=== PATIENT | male | born 1965 | race Caucasian/White ===

== ENCOUNTER 2018-05-05 19:54 | Emergency (ER) | payer SELFPAY ==
[2018-05-05] MEDS ORDERED: NORMAL SALINE 1000 ML 1,000 ML IV ONE (20:16)
[2018-05-05] MEDS ORDERED: ONDANSETRON HCL INJ/PF 4 MG/2 ML SDV IV ONE (20:16)
--- NOTE | 2018-05-05 20:18 | ER Document Report ---
ED General - General Chief Complaint: Abdominal Pain Stated Complaint: ABDOMNIAL PAIN Time Seen by Provider: 05/05/18 20:02 Notes: Patient is a 52-year-old male that comes by EMS for chief complaint of alcohol intoxication, vomiting, and abdominal pain. Patient states that he has vomited about 4 times today, he states he hurts in his mid and left abdomen, he states that he has had intermittent blood in his stools but denies black stools. He denies fever, chest pain, shortness breath, dizziness, passing out. He states that he has chronic pancreatitis, takes pain medication for this, does not like that the pain medication makes him feel weird, but then when the pain gets bad he starts drinking. Patient appears very intoxicated at this time and it is difficult to get specific history details from him. - Related Data Allergies/Adverse Reactions: No Known Drug Allergies Allergy (Verified 05/06/18 00:52) Past Medical History - General Information source: Patient - Social History Smoking Status: Former Smoker Frequency of alcohol use: Heavy Drug Abuse: None Lives with: Spouse/Significant other Family History: Reviewed & Not Pertinent GI Medical History: Reports: Hx Gastritis, Hx Pancreatitis - Immunizations Hx Diphtheria, Pertussis, Tetanus Vaccination: Yes Review of Systems - Review of Systems Constitutional: No symptoms reported EENT: No symptoms reported Cardiovascular: No symptoms reported Respiratory: No symptoms reported Gastrointestinal: See HPI Genitourinary: No symptoms reported Male Genitourinary: No symptoms reported Musculoskeletal: No symptoms reported Skin: No symptoms reported Hematologic/Lymphatic: No symptoms reported Neurological/Psychological: See HPI Physical Exam - Vital signs Vitals: Temp Resp BP Pulse Ox 98.6 F 19 153/112 H 95 05/05/18 20:02 05/05/18 20:02 05/05/18 20:02 05/05/18 20:02 - Notes Notes: GENERAL: Intoxicated, intermittently becomes very loud and somewhat agitated, however he is cooperative and does follow directions HEAD: Normocephalic, atraumatic. EYES: Pupils equal, round, and reactive to light. Extraocular movements intact. ENT: Oral mucosa moist, tongue midline. Minimal erythema of the posterior pharynx, patent airway NECK: Full range of motion. Supple. Trachea midline. LUNGS: Mildly decreased breath sounds bilaterally, no wheezes, rales, rhonchi, tachypnea, or signs of distress HEART: Sinus tachycardia, no murmur ABDOMEN: Soft, non-tender. Non-distended. Bowel sounds present in all 4 quadrants. RECTAL: Brown normal-appearing stool, no gross blood, no tenderness or other abnormality noted. Radha MARIE present during exam. EXTREMITIES: Moves all 4 extremities spontaneously. No edema, normal radial and dorsalis pedis pulses bilaterally. No cyanosis. BACK: no cervical, thoracic, lumbar midline tenderness. No saddle anesthesia, normal distal neurovascular exam. NEUROLOGICAL: Oriented to person, time, and place. Slurred speech. [cranial nerves II through XII grossly intact]. PSYCH: Intermittently anxious and agitated SKIN: Julius skin, slightly flushed Course - Re-evaluation Re-evalutation: Patient insists that he has never had alcohol withdrawals in the past. He states that he does not usually get drunk but got depressed and started drinking the past few days. 05/05/18 23:40 Heart rate down from 120s to now 102, patient became calm and then fell asleep. Abdominal exam without rigidity or guarding, only mild upper abdominal tenderness, lipase is not elevated, CMP shows unremarkable bilirubin, unremarkable LFTs. No leukocytosis. No fever. Patient has not vomited since he has been here. No gross blood in stool on examination, Hemoccult is negative. Patient is very intoxicated with alcohol level 265. Urine drug screen shows barbiturates. Patient has not had any vomiting. Reevaluation of his abdomen is unremarkable. His only complaint on reevaluation is saying that he is going to kill himself. came to bedside. She states that she and her are recently homeless , patient has been drinking more this week compared to prior, she states that he also has been not only depressed but repeating that he is going to kill himself. She denies any voiced plan. He has never tried to kill himself in the past. Patient has unprompted begun saying that if he goes home he is " never going to be seen again". He states that he is going to kill himself. He will not tell me any specific complaint. He denies homicidal ideations. He states he is depressed and his only choice is drinking. Because of patient's voiced concerns, 's first concerns, discussed with patient and and decision was made for patient to be placed on 24 hour papers and be evaluated by the mental health team in the morning. Patient is medically cleared at this time. - Vital Signs Vital signs: Temp Pulse Resp BP Pulse Ox 98.9 F 15 142/90 H 97 05/06/18 03:01 05/06/18 03:01 05/06/18 03:01 05/06/18 03:01 - Laboratory Result Diagrams: 05/05/18 20:06 05/05/18 20:06 Laboratory results interpreted by me: 05/05/18 05/05/18 20:06 20:06 MCV 101 H MCH 34.7 H RDW 14.4 H Sodium 146.3 H Chloride 110 H Carbon Dioxide 21 L Glucose 123 H Calcium 10.3 H Discharge - Discharge Clinical Impression: Suicidal ideations Alcohol intoxication Qualifiers: Complication of substance-induced condition: with unspecified complication Qualified Code(s): F10.929 - Alcohol use, unspecified with intoxication, unspecified Condition: Stable Disposition: PSYCH HOSP/UNIT
[2018-05-05 20:33] LABS: ABSOLUTE BASOPHILS # (AUTO) 0.1 10^3/uL (0.0-0.2); ABSOLUTE EOSINOPHILS # (AUTO) 0.2 10^3/uL (0.0-0.6); ABSOLUTE LYMPHOCYTES (AUTO) 3.7 10^3/uL (0.5-4.7); ABSOLUTE MONOCYTES (AUTO) 0.7 10^3/uL (0.1-1.4); ABSOLUTE NEUT (AUTO) 4.8 10^3/uL (1.7-8.2); BASOPHILS % (AUTO) 0.8 % (0-2); EOSINOPHILS % (AUTO) 1.6 % (0-6); HEMATOCRIT 47.4 % (37.9-51.0); HEMOGLOBIN 16.3 g/dL (13.5-17.0); LYMPHOCYTES % (AUTO) 38.8 % (13-45); MEAN CORPUSCULAR HEMOGLOBIN 34.7 pg (27.0-33.4); MEAN CORPUSCULAR HGB CONC 34.4 g/dL (32.0-36.0); MEAN CORPUSCULAR VOLUME 101 fl (80-97); MONOCYTES % (AUTO) 7.7 % (3-13); PLATELET COUNT 337 10^3/uL (150-450); RED CELL DISTRIBUTION WIDTH 14.4 % (11.5-14.0); SEGMENTED NEUTROPHILS % (AUTO) 51.1 % (42-78); TOTAL CELLS COUNTED % (AUTO) 100 %; WHITE BLOOD COUNT 9.5 10^3/uL (4.0-10.5)
[2018-05-05 20:57] LABS: ALANINE AMINOTRANSFERASE 28 U/L (21-72); ALBUMIN 4.2 g/dL (3.5-5.0); ALCOHOL 265 mg/dL (NONE DETECTED); ALKALINE PHOSPHATASE 97 U/L (38-126); ANION GAP 15 (5-19); ASPARTATE AMINO TRANSFERASE 25 U/L (17-59); BILIRUBIN,DIRECT 0.2 mg/dL (0.0-0.4); BILIRUBIN,TOTAL 0.2 mg/dL (0.2-1.3); BLOOD UREA NITROGEN 10 mg/dL (7-20); CALCIUM 10.3 mg/dL (8.4-10.2); CARBON DIOXIDE 21 mmol/L (22-30); CHLORIDE 110 mmol/L (98-107); GLUCOSE 123 mg/dL (75-110); POTASSIUM 4.6 mmol/L (3.6-5.0); SODIUM 146.3 mmol/L (137-145); TOTAL PROTEIN 7.5 g/dL (6.3-8.2)
[2018-05-05 21:08] LABS: APPEARANCE,URINE CLEAR; BILIRUBIN,URINE NEGATIVE (NEGATIVE); COLOR,URINE STRAW; GLUCOSE, URINE NEGATIVE (NEGATIVE); KETONES,URINE NEGATIVE (NEGATIVE); LEUKOCYTE ESTERASE,URINE NEGATIVE (NEGATIVE); NITRITE,URINE NEGATIVE (NEGATIVE); PROTEIN,URINE NEGATIVE (NEGATIVE); URINE SPECIFIC GRAVITY 1.006; UROBILINOGEN,URINE NEGATIVE mg/dL (<2.0)
[2018-05-05] MEDS ORDERED: PROMETHAZINE HCL INJ 25 MG/1 ML VIAL IM ONE (21:13)
--- NOTE | 2018-05-05 21:13 | EKG REPORT ---
SEVERITY:- BORDERLINE ECG - SINUS TACHYCARDIA PROBABLE LEFT ATRIAL ABNORMALITY POOR R WAVE PROGRESSION ANTERIOR PRECORDIAL LEADS : Confirmed by: Ramon Hernandez MD 05-May-2018 21:12:24
[2018-05-05 21:23] LABS: URINE AMPHETAMINES SCREEN NEGATIVE; URINE BARBITURATES SCREEN UNCONFIRMED POSITIVE; URINE BENZODIAZEPINES SCREEN NEGATIVE; URINE COCAINE SCREEN NEGATIVE; URINE MARIJUANA (THC) SCREEN NEGATIVE; URINE METHADONE SCREEN NEGATIVE; URINE PHENCYCLIDINE SCREEN NEGATIVE
[2018-05-06] MEDS ORDERED: PROMETHAZINE HCL INJ 25 MG/1 ML VIAL IM ONE (05:40)
[2018-05-06] MEDS ORDERED: HYDROXYZINE HCL 10 MG TABLET PO ONE (10:36)
--- NOTE | 2018-05-06 10:38 | PSYCHOLOGICAL NOTE ---
Psych Note - Psych Note Psych Note: This 52-year-old man presented for desire to detox last night. Last drink was yesterday. This man does not have any complicated history of withdrawal in the past.
--- NOTE | 2018-05-06 12:35 | PSYCHOLOGICAL NOTE ---
Psych Note - Psych Note Psych Note: Reason for Consult: Suicidal Ideation, substance abuse;alcohol Consent Permissions: Patient insists that he has never had alcohol withdrawals in the past. He states that he does not usually get drunk but got depressed and started drinking the past few days. His only complaint on reevaluation is saying that he is going to kill himself. Patient disclosed that he came to [facility] ED because he is "got a stop drinking." He states that he has lost everything to include his home, job, and driver material handler's license. He states that if he does not change he will end up drinking himself to . Patient states that he does have some issues with following through with getting help; "2 weeks ago I was at [facility] and was all set up to go inpatient when I backed out." Patient states that last year he was successful in staying sober for about 6-8 months. He states that this was accomplished by going through a program in [place] and then following up with living through the [facility]. Behavioral health team contacted [facility], [facility], and [facility]; there are no beds available. Clinician checking with patient. He discloses much better mood stating he received a phone call from his girlfriend who stated that 1 of the applications he submitted has come back and he has been hired. He reports that he no longer feels so despondent and feels like he is a reason to live again. Patient disclosed that when he is working as much better because he is not sitting around doing nothing and worrying. He discloses his plan will be to follow-up with AA and look into some other outpatient substance abuse treatment programs. Patient is alert and orientated to person, place, time and circumstance. Mood is euthymic with congruent affect as evidenced by smiling and engaging with clinician. Patient denies suicidal ideation after receiving positive word on getting a job. Patient denies homicidal ideation. Delusions are absent behaviors congruent with an intact reality based presentation i.e. organized and linear thought process. Eye contact is well-maintained. Conversational speech was within normal rate, tone and prosody. Intellectual abilities appear to be within the average range. Attention and concentration are good. Insight , judgment, impulse control are fair. 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 Patient reports wanting assistance with detox. He disclosed that he feels he really needs a one year program to get clean. It was explained to the patient there are no current beds available but that he will be put into contact with [facility] for continued assistance. Patient was provided information on different residential options. Patient discloses passive suicidal ideation i.e. no plans means or intent in connection with his depression on trying to become sober. Patient does not meet IVC criteria per [place] 122C. Upon discussing discharge plan patient disclosed he received a phone call from his girlfriend who disclosed that one of his applications for employment was accepted and he has a job offer. Patient disclosed that he will be following up with AA meetings for the evening and possible additional substance abuse treatment so he does not jeopardize this job offer. Dr. Winters was consulted and the care management this patient; attending physician is in agreement with recommendations and disposition. Discharge - Discharge Clinical Impression: Suicidal ideations Alcohol intoxication Qualifiers: Complication of substance-induced condition: with unspecified complication Qualified Code(s): F10.929 - Alcohol use, unspecified with intoxication, unspecified Condition: Stable Disposition: HOME, SELF-CARE Additional Instructions: You have been evaluated by medical and behavioral health teams and have been deemed appropriate for discharge. You are recommended to follow up with [facility] for continued assistance in obtaining detox. You have also been provided information on care home residential substance abuse treatment. ACUTE ALCOHOL INTOXICATION and ALCOHOL ABUSE: Your evaluation revealed very high levels of alcohol. You can from drinking a large amount of alcohol rapidly! Further, there's the risk of falls , traffic accidents, and fights. A high portion (about 50 percent) of the serious injuries seen in hospital emergency rooms are caused by alcohol. Alcohol overdosage is usually due to an underlying emotional or psychiatric problem. You may benefit from counselling. If "binge" drinking is an ongoing problem for you, or if you drink ANY AMOUNT of alcohol EVERY day, you most likely have a tendency to alcoholism. You should avoid alcohol totally. We can refer you for treatment. Persons with alcohol problems are often also prone to other addictions -- you should discuss any use of medications or drugs with the doctor. You should be watched at home for the next several hours by someone who has not been drinking. Get extra fluids for the next 24 hours. Call the doctor if there is repeated vomiting, increasing headache, decreasing level of alertness, or any other worsening. CHRONIC ALCOHOLISM and ALCOHOL ABUSE: Your evaluation reveals evidence of chronic alcoholism, an addiction to alcohol. The tendency to alcoholism may be inherited. Chronic use of alcohol weakens muscles, causes fatty deposits in the liver , damages the stomach, makes you more prone to infections, and can cause defects in unborn children. In the long run, brain atrophy and cirrhosis of the liver result. You are also at greater risk for certain types of cancer, such as cancer of the mouth, throat, stomach, and liver. Counselling services are available to help you. In-hospital treatment programs often help. Support groups such as Alcoholics Anonymous can be very useful in beating this addiction. Your physician can make a referral for you. As alcoholics often are prone to other addictions, you should discuss your use of any other medications with the doctor. DEPRESSION: Your evaluation reveals that you have mental depression. While symptoms may be vague, they often include disturbance of sleep, fatigue, loss of appetite , and general loss of interest in life. While depression may be a side effect of drugs, or a reaction to a major change in your life, many cases have no known cause. If depression is acute, and related to a major loss in your life, you can expect it to clear completely with time. If you have been depressed a long time , are prone to repeated bouts of depression or low mood, or have been thinking of suicide, get help. Depression can be treated with anti-depressant medication and counselling. Long-term depression will often take a few weeks to clear, even with appropriate medication. Follow-up care is important. SUICIDAL IDEATION: Suicidal ideation is a common medical term for thoughts about suicide, which may be as detailed as a formulated plan, without the suicidal act itself. Although most people who undergo suicidal ideation do not commit suicide, some go on to make suicide attempts. The range of suicidal ideation varies greatly from fleeting to detailed planning, role playing, and unsuccessful attempts. While thoughts about suicide are common, most people do not carry out serious actions to commit suicide. Based upon your evaluation and discussion with you, we do not believe you are currently at risk to act upon your thoughts of suicide. You have agreed to return to the Emergency Department, at any time , if you feel inclined to act upon your suicidal thoughts. FOLLOW-UP CARE: If you experience worsening or a significant change in your symptoms, notify the physician immediately or return to the Emergency Department at any time for re-evaluation. Referrals: [facility] [Outside] - Follow up in 3-5 days [facility] [Outside] - 05/06/18
--- NOTE | 2018-05-06 15:30 | ER Document Report ---
Doctor's Note Notes: 05/06/18 15:30 Alcoholic seeking treatment he presented with abdominal pain notes that he has been drinking extensively over the last several weeks. He denies any desire to harm himself at this time or anyone else. He denies any hallucinations. Notes that he actually received a call for a job offer today and is feeling very upbeat. After speaking with mental health team this patient has been deemed safe for discharge, he will pursue outpatient treatment for his alcoholism. He has never a complicated withdrawal do not believe he is at risk for complicated withdrawal at this time. Encouraged him to follow-up in case of any worsening symptoms. 05/06/18 20:32
[2018-05-06 16:22] VITALS: BP 157/113
== END 2018-05-06 16:22 | disposition home or self-care (01) ==
LOC: ER 19:54
DX: R45.851 Suicidal ideations (principal); F10.929 Alcohol use, unspecified with intoxication, unspecified; R11.10 Vomiting, unspecified; R10.9 Unspecified abdominal pain
CPT/HCPCS: 93005; 99285; 96372; 96361; 96374; 36415; 80307 ×2; 83690; 85025; 82272; 80053; 81001; 93010; J2550 ×2; J2405; J7030

== ENCOUNTER 2019-02-07 14:04 | Emergency (ER) | payer OTHER ==
[2019-02-07] MEDS ORDERED: KETOROLAC TROMETHAMINE INJ/PF 30 MG/1 ML SDV IM ONE (15:20)
[2019-02-07] MEDS ORDERED: DIPH/PERTUSS(ACELL)/TETANUS VAC/PF 0.5 ML SYR (>=10YO) IM ONE (15:20)
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
[2019-02-07 15:53] LABS: ABSOLUTE BASOPHILS # (AUTO) 0.1 10^3/uL (0.0-0.2); ABSOLUTE EOSINOPHILS # (AUTO) 0.1 10^3/uL (0.0-0.6); ABSOLUTE NEUT (AUTO) 6.4 10^3/uL (1.7-8.2); EOSINOPHILS % (AUTO) 1.2 % (0-6); HEMATOCRIT 45.6 % (37.9-51.0); HEMOGLOBIN 15.4 g/dL (13.5-17.0); LYMPHOCYTES % (AUTO) 28.3 % (13-45); MEAN CORPUSCULAR HEMOGLOBIN 34.3 pg (27.0-33.4); MEAN CORPUSCULAR HGB CONC 33.8 g/dL (32.0-36.0); MEAN CORPUSCULAR VOLUME 102 fl (80-97); MONOCYTES % (AUTO) 9.1 % (3-13); PLATELET COUNT 309 10^3/uL (150-450); RED BLOOD COUNT 4.49 10^6/uL (4.35-5.55); RED CELL DISTRIBUTION WIDTH 14.9 % (11.5-14.0); SEGMENTED NEUTROPHILS % (AUTO) 60.4 % (42-78); TOTAL CELLS COUNTED % (AUTO) 100 %; WHITE BLOOD COUNT 10.7 10^3/uL (4.0-10.5)
[2019-02-07 16:11] LABS: ALANINE AMINOTRANSFERASE 22 U/L (21-72); ALBUMIN 3.8 g/dL (3.5-5.0); ALKALINE PHOSPHATASE 109 U/L (38-126); ANION GAP 10 (5-19); ASPARTATE AMINO TRANSFERASE 17 U/L (17-59); BILIRUBIN,DIRECT 0.2 mg/dL (0.0-0.4); BILIRUBIN,TOTAL 0.2 mg/dL (0.2-1.3); BLOOD UREA NITROGEN 12 mg/dL (7-20); CALCIUM 9.4 mg/dL (8.4-10.2); CARBON DIOXIDE 23 mmol/L (22-30); CHLORIDE 110 mmol/L (98-107); GLUCOSE 103 mg/dL (75-110); POTASSIUM 3.8 mmol/L (3.6-5.0); SODIUM 143.2 mmol/L (137-145)
[2019-02-07] MEDS ORDERED: OXYCODONE-ACETAMINOPHEN 5-325 MG TABLET PO ONE (17:31)
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
--- NOTE | 2019-02-07 18:59 | ER Document Report ---
ED Hand/Wrist Injury - General Chief Complaint: Hand Injury Stated Complaint: HAND INJURY Time Seen by Provider: 02/07/19 15:17 Primary Care Provider: RAKESH CHRISTIANSON MD [Primary Care Provider] - Follow up as needed Mode of Arrival: Ambulatory Information source: Patient, Relative Notes: Patient is a 53-year-old male who was sent to the emergency room by Dr. Flower dumont with a complaint of a chemical burn to the right hand. 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 Patient states he did not think anything about it happened before but may be not for that long. And went home and a little bit of discomfort and went to bed woke up at 4:00 this morning had a little blisters on the palm of his right hand and on multiple fingers. Also during that time the dorsum of his hand started to swell and the blisters became bigger and bigger. He went to see his primary care doctor who sent him to the ER because he needs to be seen by a hand specialist. Patient also states that in a separate incident he burned the base of the right elbow area on a muffler yesterday while also working. TRAVEL OUTSIDE OF THE [place] IN LAST 30 DAYS: No - HPI Injury to: Hand, Palm, Thumb, Index finger, Middle finger, Ring finger, Small finger Onset: Yesterday Where: Work Timing: Constant, Worse Quality of pain: Burning, Sharp, Throbbing Severity: Moderate Pain Level: 3 Context: Burn - Related Data Allergies/Adverse Reactions: No Known Drug Allergies Allergy (Verified 02/07/19 14:05) Past Medical History - General Information source: Patient, Relative - Social History Smoking Status: Current Every Day Smoker Cigarette use (# per day): Yes - Half-pack Chew tobacco use (# tins/day): No Smoking Education Provided: No Frequency of alcohol use: None Drug Abuse: None Lives with: Family Family History: Reviewed & Not Pertinent Patient has suicidal ideation: No Patient has homicidal ideation: No - Past Medical History Cardiac Medical History: Reports: Hx Hypertension Renal/ Medical History: Denies: Hx Peritoneal Dialysis GI Medical History: Reports: Hx Gastritis, Hx Pancreatitis Past Surgical History: Reports: Hx Pancreatic Surgery - tumor removed - Immunizations Hx Diphtheria, Pertussis, Tetanus Vaccination: Yes Review of Systems - Review of Systems Constitutional: No symptoms reported EENT: No symptoms reported Cardiovascular: No symptoms reported Respiratory: No symptoms reported Gastrointestinal: No symptoms reported Genitourinary: No symptoms reported Male Genitourinary: No symptoms reported Musculoskeletal: No symptoms reported Skin: See HPI, Other - Chemical burn to hand Hematologic/Lymphatic: No symptoms reported Neurological/Psychological: No symptoms reported -: Yes All other systems reviewed and negative Physical Exam - Vital signs Vitals: Temp Pulse Resp BP Pulse Ox 98.1 F 81 16 131/89 H 98 02/07/19 14:12 02/07/19 14:12 02/07/19 14:12 02/07/19 14:12 02/07/19 14:12 Interpretation: Hypertensive - Notes Notes: PHYSICAL EXAMINATION: GENERAL: Well-appearing, well-nourished and in no acute distress. HEAD: Atraumatic, normocephalic. EYES: Pupils equal round and reactive to light, extraocular movements intact, sclera anicteric, conjunctiva are normal. LUNGS: Breath sounds clear to auscultation bilaterally and equal. No wheezes rales or rhonchi. HEART: Regular rate and rhythm without murmurs Musculoskeletal: Examination patient's area of concern is his right hand. Examination of the hand shows that he has 2 blisters one in the thenar prominence of the right hand and the other at approximately the ring finger palmar side of the palm. One is 4 x 4 cm the other one is 2 x 2 cm. Further examination shows there are other blisters scattered throughout all the fingers on the palmar side only. Also noted are multiple discolorations of a whitish nature of that appeared more deep down into the skin tone itself. Almost like a freeze burn to the area. Patient has swelling of all the fingers at this point with good cap refill in nailbeds of all fingers on examination. He has some swelling to the dorsum of the right hand but no restrictive blood flow concerns at this time. There is no sign of compartment syndrome in any of the fingers. Patient actually has flexion and extension although limited by swelling and discomfort. He displays as stated good cap refill in the nailbeds of the fingers at this time. He also displays sensation in the distal tips of the fingers. Sensation also distributes across the dorsum of the hand as well as the palmar side of the hand. NEUROLOGICAL: Normal speech, normal gait. Normal sensory, motor exams PSYCH: Normal mood, normal affect. SKIN: see musculoskeletal above. As described in muscular skeletal above there is multiple discolorations that are concerning for a freeze burn i.e. frostbite type presentation to each of the fingers of the right hand. As stated patient has a second area of a secondary burn. Is approximately 2 cm wide by 6 cm long. It is a early second-degree type burn. It has has some reddened base to the area that extends out approximately 6 cm. Does appear to be a secondary cellulitis. Course - Re-evaluation Re-evalutation: 02/07/19 18:[address] Moran after examination of patient's and explained to him about the discolorations and the frostbite presentation as well as the blisters. He has requested to have the patient be seen in his office tomorrow and we will give the patient the information to contact the office in the morning to see what time he needs to be seen. Meantime Dr. Moran had me put a nonocclusive dressing on it. I have also had and Dr. Cara Dior take a look at it as well she is in agreement with me on treatment options at this time we will apply some antibiotic ointment and nonstick dressing and a light external wrap. Patient does admit that he has been in pain management for chronic pancreatitis and states that he stopped pain management control a month ago. We will give patient enough medication to last until he can see Dr. Moran tomorrow. 02/07/19 19:01 As stated earlier patient does have a small second area of concern which is the palmar side of the right elbow he has a approximately 6 cm x 2-1/2 cm area of a muffler burn that we applied antibiotic ointment to and a dressing as well. There is some redness surrounding that area so we will also apply some oral antibiotics for cellulitis. - Vital Signs Vital signs: Temp Pulse Resp BP Pulse Ox 98.1 F 81 16 131/89 H 98 02/07/19 14:12 02/07/19 14:12 02/07/19 14:12 02/07/19 14:12 02/07/19 14:12 - Laboratory Result Diagrams: 02/07/19 15:40 02/07/19 15:40 Laboratory results interpreted by me: 02/07/19 02/07/19 15:40 15:40 WBC 10.7 H MCV 102 H MCH 34.3 H RDW 14.9 H Chloride 110 H Discharge - Discharge Clinical Impression: Freeze burn right hand Chemical burn of right hand Qualifiers: Encounter type: initial encounter Corrosion degree: unspecified degree Qualified Code(s): T23.401A - Corrosion of unspecified degree of right hand, unspecified site, initial encounter Condition: Stable Disposition: HOME, SELF-CARE Additional Instructions: Home and leave the area wrapped until he seen by Dr. Moran tomorrow. I have given the information to his office contact our office first thing in the morning at 8 AM and find out what time you are to be there. Oral antibiotics as prescribed you can change your dressing out on your elbow area 2-3 times a day. Also apply antibiotic ointment over that area. As stated though do not take off the hand wrapping until seen by Dr. Moran. Prescriptions: Cephalexin Monohydrate [Keflex 500 mg Capsule] 500 mg PO QID #28 capsule Oxycodone HCl/Acetaminophen [Percocet 5-325 mg Tablet] 1 - 2 tab PO Q4H PRN #10 tablet PRN Reason: Forms: Elevated Blood Pressure, Smoking Cessation Education Referrals: RAKESH CRHISTIANSON MD [Primary Care Provider] - Follow up as needed MAISHA MORAN MD [ACTIVE STAFF] - Follow up as needed
[2019-02-07 19:01] VITALS: BP 129/94
== END 2019-02-07 19:11 | disposition home or self-care (01) ==
LOC: ER 14:04
DX: T23.251A Burn of second degree of right palm, initial encounter (principal); T22.211A Burn of second degree of right forearm, initial encounter; T53.5X1A Toxic effect of chlorofluorocarbons, accidental (unintentional), initial encounter; I10 Essential (primary) hypertension; X58.XXXA Exposure to other specified factors, initial encounter; Y99.0 Civilian activity done for income or pay; F17.210 Nicotine dependence, cigarettes, uncomplicated
CPT/HCPCS: 99283; 96372; 90471; 36415; 85025; 80053; 73130; 90715; J1885

== ENCOUNTER 2019-02-25 20:06 | Emergency (ER) | payer SELFPAY ==
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
[2019-02-25 20:37] LABS: ABSOLUTE BASOPHILS # (AUTO) 0.1 10^3/uL (0.0-0.2); ABSOLUTE EOSINOPHILS # (AUTO) 0.1 10^3/uL (0.0-0.6); ABSOLUTE LYMPHOCYTES (AUTO) 2.9 10^3/uL (0.5-4.7); ABSOLUTE MONOCYTES (AUTO) 0.8 10^3/uL (0.1-1.4); BASOPHILS % (AUTO) 0.5 % (0-2); EOSINOPHILS % (AUTO) 0.4 % (0-6); LYMPHOCYTES % (AUTO) 24.3 % (13-45); MEAN CORPUSCULAR HEMOGLOBIN 34.3 pg (27.0-33.4); MEAN CORPUSCULAR VOLUME 101 fl (80-97); MONOCYTES % (AUTO) 7.1 % (3-13); PLATELET COUNT 244 10^3/uL (150-450); RED BLOOD COUNT 4.36 10^6/uL (4.35-5.55); RED CELL DISTRIBUTION WIDTH 14.2 % (11.5-14.0); SEGMENTED NEUTROPHILS % (AUTO) 67.7 % (42-78); TOTAL CELLS COUNTED % (AUTO) 100 %; WHITE BLOOD COUNT 11.7 10^3/uL (4.0-10.5)
[2019-02-25 20:50] LABS: ALANINE AMINOTRANSFERASE 21 U/L (21-72); ALBUMIN 3.8 g/dL (3.5-5.0); ALCOHOL 256 mg/dL (NONE DETECTED); ALKALINE PHOSPHATASE 82 U/L (38-126); ANION GAP 11 (5-19); ASPARTATE AMINO TRANSFERASE 21 U/L (17-59); BILIRUBIN,DIRECT 0.2 mg/dL (0.0-0.4); BILIRUBIN,TOTAL 0.2 mg/dL (0.2-1.3); BLOOD UREA NITROGEN 9 mg/dL (7-20); CALCIUM 9.4 mg/dL (8.4-10.2); CARBON DIOXIDE 20 mmol/L (22-30); CHLORIDE 117 mmol/L (98-107); GLUCOSE 88 mg/dL (75-110); POTASSIUM 3.2 mmol/L (3.6-5.0); SALICYLATE 8.8 mg/dL (2.0-20.0); SODIUM 147.6 mmol/L (137-145); TOTAL PROTEIN 6.5 g/dL (6.3-8.2)
[2019-02-25 20:52] LABS: ACETAMINOPHEN < 10 ug/mL (10-30)
--- NOTE | 2019-02-25 21:53 | EKG REPORT ---
SEVERITY:- NORMAL ECG - SINUS RHYTHM : Confirmed by: Ramon Hernandez MD 25-Feb-2019 21:52:33
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
--- NOTE | 2019-02-25 22:13 | RADIOLOGY REPORT (SQ) ---
EXAM DESCRIPTION: XR CHEST 1 VIEW COMPLETED DATE/TME: 02/25/2019 20:25 CLINICAL HISTORY: 53 years, Male, trauma, attempted hanging Comparison: None FINDINGS: No focal lung consolidation. No pleural effusion. No pneumothorax. Cardiac and mediastinal silhouette is unremarkable. No acute osseous abnormality. Soft tissues are unremarkable. IMPRESSION: No acute findings. No focal lung consolidation.
--- NOTE | 2019-02-25 22:20 | RADIOLOGY REPORT (SQ) ---
EXAM DESCRIPTION: XR HAND 3 VIEWS BILATERAL COMPLETED DATE/TME: 02/25/2019 20:25 CLINICAL HISTORY: 53 years, Male, trauma, attempted hanging COMPARISON: RIGHT hand radiographs dated 02/07/2019. NUMBER OF VIEWS: Three separate views of each hand TECHNIQUE: Three views of the RIGHT hand and three separate views of LEFT hand were performed. LIMITATIONS: Some wires overlie the RIGHT second digit. FINDINGS: No localized soft tissue swelling or radiopaque foreign body is identified. Incidental note is made of a small ossification distal to the RIGHT ulnar styloid process, unchanged. Similarly, there are small chronic ossifications posterior to the LEFT wrist and hand only visualized on the lateral radiograph. Bone mineralization is within normal limits. No fracture is identified. Bony alignment is maintained. No suspicious calcification is seen. IMPRESSION: Unremarkable bilateral hand radiographs aside from chronic/normal variant findings. copyright 2010 [employer]- All Rights Reserved
[2019-02-25] MEDS ORDERED: RINGERS SOLUTION,LACTATED 1,000 ML IV ONE (23:23)
[2019-02-26 02:52] LABS: APPEARANCE,URINE CLEAR; BILIRUBIN,URINE NEGATIVE (NEGATIVE); COLOR,URINE YELLOW; GLUCOSE, URINE NEGATIVE (NEGATIVE); KETONES,URINE NEGATIVE (NEGATIVE); LEUKOCYTE ESTERASE,URINE NEGATIVE (NEGATIVE); NITRITE,URINE NEGATIVE (NEGATIVE); PROTEIN,URINE NEGATIVE (NEGATIVE); UROBILINOGEN,URINE NEGATIVE mg/dL (<2.0)
[2019-02-26 02:54] LABS: URINE SPECIFIC GRAVITY > 1.060
[2019-02-26 03:25] LABS: URINE AMPHETAMINES SCREEN NEGATIVE; URINE BARBITURATES SCREEN NEGATIVE; URINE BENZODIAZEPINES SCREEN NEGATIVE; URINE COCAINE SCREEN NEGATIVE; URINE MARIJUANA (THC) SCREEN NEGATIVE; URINE METHADONE SCREEN NEGATIVE; URINE PHENCYCLIDINE SCREEN NEGATIVE
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
[2019-02-26] MEDS: VENLAFAXINE HCL 37.5 MG CAP.SR.24H PO SCH (09:44)
[2019-02-26] MEDS: BUSPIRONE HCL 10 MG TABLET PO SCH ×2 (09:45→18:36)
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
[2019-02-26] MEDS ORDERED: AMLODIPINE BESYLATE 5 MG TABLET PO ONE (18:13)
[2019-02-26] MEDS ORDERED: ATENOLOL 50 MG TABLET PO ONE (18:13)
[2019-02-26] MEDS ORDERED: NICOTINE 21 MG/24 HR PATCH.TD24 TD ONE (18:56)
[2019-02-27] MEDS ORDERED: POTASSIUM CHLORIDE 10 MEQ CAPSULE.ER PO ONE (09:42)
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
[2019-02-27] MEDS: AMLODIPINE BESYLATE 5 MG TABLET PO SCH (10:37)
[2019-02-27] MEDS: BUSPIRONE HCL 10 MG TABLET PO SCH ×2 (10:37→17:24)
[2019-02-27] MEDS: VENLAFAXINE HCL 37.5 MG CAP.SR.24H PO SCH (10:38)
[2019-02-27] MEDS: ATENOLOL 50 MG TABLET PO SCH (10:38)
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
[2019-02-27] MEDS ORDERED: LORAZEPAM 1 MG TABLET PO ONE (15:37)
[2019-02-27] MEDS ORDERED: DIPHENOXYLATE HCL/ATROP SULF 2.5-0.025 MG TABLET PO ONE (17:36)
[2019-02-27] MEDS ORDERED: TRAMADOL HCL 50 MG TABLET PO ONE (19:31)
[2019-02-28 06:20] VITALS: BP 145/93
[2019-02-28] MEDS: BUSPIRONE HCL 10 MG TABLET PO SCH (09:08)
[2019-02-28] MEDS: ATENOLOL 50 MG TABLET PO SCH (09:08)
[2019-02-28] MEDS: VENLAFAXINE HCL 37.5 MG CAP.SR.24H PO SCH (09:08)
[2019-02-28] MEDS: AMLODIPINE BESYLATE 5 MG TABLET PO SCH (09:09)
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
== END 2019-02-28 14:51 | disposition home or self-care (01) ==
LOC: ER 20:06
DX: S09.90XA Unspecified injury of head, initial encounter (principal); F10.920 Alcohol use, unspecified with intoxication, uncomplicated; R41.0 Disorientation, unspecified; Y04.0XXA Assault by unarmed brawl or fight, initial encounter; T71.162A Asphyxiation due to hanging, intentional self-harm, initial encounter; X83.8XXA Intentional self-harm by other specified means, initial encounter; I10 Essential (primary) hypertension; Z78.1 Physical restraint status; F32.9 Major depressive disorder, single episode, unspecified
CPT/HCPCS: 93005; 99285; 36415; 80307 ×4; 85025; 80053; 81001; 71045; 73130; 70450; 70498; 72125; 93010; J3490 ×4; J7120

== ENCOUNTER 2019-06-27 00:49 | Emergency (ER) | payer SELFPAY ==
[2019-06-27 01:15] LABS: ABSOLUTE BASOPHILS # (AUTO) 0.1 10^3/uL (0.0-0.2); ABSOLUTE MONOCYTES (AUTO) 0.7 10^3/uL (0.1-1.4); ABSOLUTE NEUT (AUTO) 7.8 10^3/uL (1.7-8.2); BASOPHILS % (AUTO) 0.6 % (0-2); EOSINOPHILS % (AUTO) 0.3 % (0-6); MEAN CORPUSCULAR VOLUME 97 fl (80-97); MONOCYTES % (AUTO) 6.5 % (3-13); PLATELET COUNT 296 10^3/uL (150-450); RED BLOOD COUNT 4.83 10^6/uL (4.35-5.55); RED CELL DISTRIBUTION WIDTH 13.1 % (11.5-14.0); SEGMENTED NEUTROPHILS % (AUTO) 73.6 % (42-78); TOTAL CELLS COUNTED % (AUTO) 100 %; WHITE BLOOD COUNT 10.7 10^3/uL (4.0-10.5)
[2019-06-27 01:21] LABS: ALBUMIN 4.4 g/dL (3.5-5.0); ALKALINE PHOSPHATASE 115 U/L (38-126); ANION GAP 13 (5-19); ASPARTATE AMINO TRANSFERASE 26 U/L (17-59); BILIRUBIN,DIRECT 0.1 mg/dL (0.0-0.4); BILIRUBIN,TOTAL 0.4 mg/dL (0.2-1.3); BLOOD UREA NITROGEN 19 mg/dL (7-20); CARBON DIOXIDE 24 mmol/L (22-30); CHLORIDE 104 mmol/L (98-107); GLUCOSE 141 mg/dL (75-110); POTASSIUM 4.2 mmol/L (3.6-5.0); TOTAL PROTEIN 7.4 g/dL (6.3-8.2)
[2019-06-27 01:48] LABS: APPEARANCE,URINE CLEAR; BILIRUBIN,URINE NEGATIVE (NEGATIVE); COLOR,URINE YELLOW; GLUCOSE, URINE NEGATIVE (NEGATIVE); KETONES,URINE NEGATIVE (NEGATIVE); LEUKOCYTE ESTERASE,URINE NEGATIVE (NEGATIVE); NITRITE,URINE NEGATIVE (NEGATIVE); PROTEIN,URINE NEGATIVE (NEGATIVE); URINE SPECIFIC GRAVITY 1.019; UROBILINOGEN,URINE NEGATIVE mg/dL (<2.0)
--- NOTE | 2019-06-27 02:00 | ER Document Report ---
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 Patient reports he drinks "about a sixpack a week," but denies other alcohol intake or drug abuse. Location: Epigastric abdomen Onset: One day ago Alleviation: None Provocation: Drinking alcohol, eating food Quality: Aching, burning Radiation: Through to the back Severity: Severe at worst, currently moderate Timing: Constant History of abdominal surgery: Yes Associated symptoms: Denies fevers or chills, no cough or congestion, no chest pain or shortness of breath, no diarrhea, no hematemesis or hematochezia, no melena Last bowel movement: Today and normal REVIEW OF SYSTEMS: CONSTITUTIONAL : Denies fever or chills, no sweats. Denies recent illness. EENT: Denies eye, ear, throat, or mouth pain or symptoms. Denies nasal or sinus congestion. CARDIOVASCULAR: Denies chest pain. Denies swelling of the legs. RESPIRATORY: Denies cough, cold, or chest congestion. Denies shortness of breath or difficulty breathing. Denies wheezing. GASTROINTESTINAL: Positive for abdominal pain. Positive for nausea and vomiting but no diarrhea. Denies constipation. GENITOURINARY: Denies difficulty urinating, painful urination, burning, frequency, or blood in urine. FEMALE GENITOURINARY: Denies vaginal bleeding, abnormal or irregular periods. MUSCULOSKELETAL: Denies neck or back pain or joint pain or swelling. SKIN: Denies rash or skin lesions. HEMATOLOGIC : Denies easy bruising or bleeding. LYMPHATIC: Denies swollen, enlarged glands. NEUROLOGICAL: Denies altered mental status or loss of consciousness. Denies headache. Denies weakness or paralysis or loss of use of either side. Denies problems with gait or speech. Denies sensory or motor loss. PSYCHIATRIC: Denies anxiety or stress or depression. All other systems reviewed and negative. PHYSICAL EXAMINATION: GENERAL: Uncomfortable-appearing, well-nourished and in no acute distress. HEAD: Atraumatic, normocephalic. No scalp deformity, depression, or crepitance. EYES: Pupils are 3 mm and equal/round/reactive to light, extraocular movements intact, sclera anicteric, conjunctiva are normal. ENT: Nares patent bilaterally, oropharynx. Moist mucous membranes. No tonsil hypertrophy. NECK: Normal range of motion, supple without lymphadenopathy. LUNGS: Breath sounds present, equal, and clear to auscultation bilaterally. No wheezes, rales, or rhonchi. HEART: Regular rate and rhythm without murmurs, rubs, or gallops. 2+ peripheral pulses. Normal capillary refill. ABDOMEN: Soft, moderate epigastric and right upper quadrant tenderness, nondistended. Normoactive bowel sounds. No guarding, no rebound. No masses appreciated. BACK: Normal contour, no midline tenderness. Rectal exam deferred. GENITAL/PELVIC: Deferred. EXTREMITIES: Normal range of motion, no pitting or edema. No cyanosis. NEUROLOGICAL: No focal neurological deficits. Moves all extremities spontaneously and on command. PSYCH: Normal mood, normal affect. No suicidal thoughts/ideations. No homicidal thoughts/ideations. No hallucinations. SKIN: Warm, dry, normal turgor, no rashes or lesions noted. ASSESSMENT AND PLAN: This patient is a 53-year-old male who presents with acute on chronic abdominal pain that could represent pancreatitis versus cholecystitis versus symptomatic cholelithiasis versus colitis. 1. Will obtain labs, urine, drug screen, lipase, and right upper quadrant ultrasound. 2. Will give IV fluids with IV morphine and Zofran and reassess. TRAVEL OUTSIDE OF THE [place] IN LAST 30 DAYS: No - HPI Patient complains to provider of: Abdominal pain Onset: This morning Timing/Duration: Sudden Quality of pain: Achy, Stabbing Severity at maximum: Severe Severity in ED: Moderate Pain Level: 3 Location: Epigastric, RUQ Associated symptoms: Nausea, Vomiting Exacerbated by: Movement Relieved by: Denies Similar symptoms previously: Yes Recently seen / treated by doctor: No - Related Data Allergies/Adverse Reactions: No Known Drug Allergies Allergy (Verified 02/27/19 07:47) Past Medical History - General Information source: Patient, Friend - Social History Smoking Status: Current Every Day Smoker Chew tobacco use (# tins/day): No Frequency of alcohol use: Occasional Drug Abuse: None Lives with: Friend Family History: Reviewed & Not Pertinent Patient has suicidal ideation: No Patient has homicidal ideation: No - Past Medical History Cardiac Medical History: Reports: Hx Hypertension Pulmonary Medical History: Reports: None EENT Medical History: Reports: None Neurological Medical History: Reports: None Endocrine Medical History: Reports: None Renal/ Medical History: Reports: None. Denies: Hx Peritoneal Dialysis Malignancy Medical History: Reports None GI Medical History: Reports: Hx Gastritis, Hx Pancreatitis Musculoskeletal Medical History: Reports None Skin Medical History: Reports None Psychiatric Medical History: Reports: None Traumatic Medical History: Reports: None Infectious Medical History: Reports: None Past Surgical History: Reports: Hx Pancreatic Surgery - tumor removed - Immunizations Hx Diphtheria, Pertussis, Tetanus Vaccination: Yes Review of Systems - Review of Systems Constitutional: No symptoms reported EENT: No symptoms reported Cardiovascular: No symptoms reported Respiratory: No symptoms reported Gastrointestinal: See HPI, Abdominal pain, Nausea, Vomiting Genitourinary: No symptoms reported Male Genitourinary: No symptoms reported Musculoskeletal: No symptoms reported Skin: No symptoms reported Hematologic/Lymphatic: No symptoms reported Neurological/Psychological: No symptoms reported -: Yes All other systems reviewed and negative Physical Exam - Vital signs Vitals: Temp Resp BP Pulse Ox 97.9 F 22 H 183/108 H 98 06/27/19 01:07 06/27/19 01:07 06/27/19 01:07 06/27/19 01:07 Interpretation: Normal Course - Re-evaluation Re-evalutation: 06/27/19 03:50 Labs show elevated lipase and ultrasound is negative for acute cholecystitis. Given history, patient likely has acute on chronic pancreatitis that is likely alcoholic in origin given his report of drinking prior to symptom onset. Will discharge the patient home with strict return precautions and follow-up with gastroenterology. All results were explained to and discussed with the patient, and all questions addressed and answered. The patient voices both understanding and agreeing with the plan. - Vital Signs Vital signs: Temp Pulse Resp BP Pulse Ox 98.4 F 88 17 169/86 H 96 06/27/19 04:10 06/27/19 04:10 06/27/19 04:10 06/27/19 04:10 06/27/19 04:10 - Laboratory Result Diagrams: 06/27/19 00:55 06/27/19 00:55 Laboratory results interpreted by me: 06/27/19 06/27/19 00:55 00:55 WBC 10.7 H Glucose 141 H Lipase 541.8 H - Diagnostic Test Radiology reviewed: Image reviewed, Reports reviewed Discharge - Discharge Clinical Impression: Acute on chronic pancreatitis Condition: Good Disposition: HOME, SELF-CARE Instructions: Family Physicians / Practices, Pancreatitis ([facility]) Additional Instructions: You have been evaluated in the Emergency Department for abdominal pain. While here, you had blood work and an ultrasound and it is now safe to be discharged home. Please follow-up with your primary physician as well as gastroenterology as instructed in one week to be rechecked. Return to the Emergency Department if you experience worsening pain, difficulty breathing, uncontrollable vomiting, bloody stools, or any other concerning symptoms. Prescriptions: Tramadol HCl [Ultram 50 mg Tablet] 50 mg PO Q6HP PRN #28 tablet PRN Reason: For Pain Ondansetron [Zofran Odt 4 mg Tablet] 1 tab PO Q8HP PRN #30 tab.rapdis PRN Reason: For Nausea/Vomiting Omeprazole 20 mg PO DAILY #30 capsule.dr Referrals: RAKESH CHRISTIANSON MD [Primary Care Provider] - Follow up as needed EMILY ACUNA MD [ACTIVE STAFF] - Follow up as needed Print Language: Palestinian
[2019-06-27] MEDS ORDERED: ONDANSETRON HCL INJ/PF 4 MG/2 ML SDV IV ONE (02:06)
[2019-06-27] MEDS ORDERED: MORPHINE SULFATE 10 MG/ML INJ IV ONE (02:06)
[2019-06-27] MEDS ORDERED: METOCLOPRAMIDE HCL ORAL SOLN 10 MG/10 ML UDCUP PO ONE (03:15)
[2019-06-27] MEDS ORDERED: LIDOCAINE 2% VISCOUS SOLN 20 ML UDCUP PO ONE (03:15)
[2019-06-27] MEDS ORDERED: MAG HYDROX/AL HYDROX/SIMETH SUSP 30 ML UDCUP PO ONE (03:15)
--- NOTE | 2019-06-27 03:44 | RADIOLOGY REPORT (SQ) ---
Ultrasound right upper quadrant on 06/27/2019 at 2:24 AM CLINICAL INDICATION: Generalized abdominal pain COMPARISON: CT from 09/15/2014 FINDINGS: Multiple sonographic images are obtained throughout the right upper quadrant, both transverse and sagittal images are obtained. Pancreas is largely obscured by overlying bowel gas. Visualized liver is homogeneous without focal liver lesion. Common duct measures 3 mm which is within normal limits mitigating against obstruction of the biliary tree. There are no gallstones, gallbladder wall thickening or pericholecystic fluid. Technologist does note a positive sonographic Rios sign and please correlate clinically. Right kidney shows no hydronephrosis. No free fluid is noted in the right upper quadrant. IMPRESSION: Essentially unremarkable exam.
[2019-06-27 04:11] VITALS: BP 169/86
== END 2019-06-27 04:11 | disposition home or self-care (01) ==
LOC: ER 00:49
DX: K85.90 Acute pancreatitis without necrosis or infection, unspecified (principal); K86.1 Other chronic pancreatitis; R10.13 Epigastric pain; R10.11 Right upper quadrant pain; R11.2 Nausea with vomiting, unspecified; R10.811 Right upper quadrant abdominal tenderness; R10.816 Epigastric abdominal tenderness; I10 Essential (primary) hypertension; F17.200 Nicotine dependence, unspecified, uncomplicated; Z90.411 Acquired partial absence of pancreas
CPT/HCPCS: 36415; 83690; 85025; 80053; 81001; 76705; J3490; J2270; J2405; 96374; 96375; 99284